=== PATIENT | male | born 1975 ===

== ENCOUNTER 2018-09-10 01:12 | Emergency (ER) | payer OTHER ==
[2018-09-10 01:33] VITALS: BMI 29.9
[2018-09-10 01:36] VITALS: RESP 18
[2018-09-10] MEDS ORDERED: Sodium Chloride 0.9% 1,000 ML IV STA (01:57)
[2018-09-10 02:47] LABS: BASO % 0.2 % (0.0-2.0); EOS # 0.4 K/uL (0.0-0.7); EOS % 3.2 % (0.0-4.0); HEMOGLOBIN 14.3 g/dL (12.0-18.0); LYMPH # 0.7 K/uL (1.0-4.3); LYMPH % 5.6 % (20.0-40.0); MEAN CELL VOLUME 87.3 fl (80.0-94.0); MEAN CORPUSCULAR HEMOGLOBIN 29.1 pg (27.0-31.0); MEAN CORPUSCULAR HGB CONC 33.3 g/dL (33.0-37.0); MEAN PLATELET VOLUME 9.2 fl (7.2-11.7); MONO # 0.5 K/uL (0.0-0.8); MONO % 3.6 % (0.0-10.0); NEUT % 87.4 % (50.0-75.0); PLATELET COUNT 204 K/uL (130-400); RBC 4.93 Mil/uL (4.40-5.90); RED CELL DISTRIBUTION WIDTH 14.2 % (11.5-14.5); WHITE BLOOD COUNT 12.6 K/uL (4.8-10.8)
[2018-09-10 02:48] LABS: SQUAMOUS EPITHIAL < 1 /hpf (0-5); URINE BILIRUBIN NEGATIVE (NEGATIVE); URINE BLOOD NEGATIVE (NEGATIVE); URINE CLARITY CLEAR (Clear); URINE COLOR YELLOW (YELLOW); URINE GLUCOSE (UA) NEG (NEGATIVE); URINE LEUKOCYTE ESTERASE NEG Leu/uL (Negative); URINE PROTEIN NEGATIVE (NEGATIVE); URINE UROBILINOGEN 0.2-1.0 mg/dL (0.2-1.0)
[2018-09-10 03:01] LABS: ALB/GLOB RATIO 1.2 (1.0-2.1); ALBUMIN 4.4 g/dL (3.5-5.0); ALT/SGPT 41 U/L (21-72); AST/SGOT 37 U/L (17-59); BLOOD UREA NITROGEN 21 mg/dl (9-20); CALCIUM 9.7 mg/dL (8.4-10.2); GFR NON-AFRICAN AMERICAN > 60; LIPASE 92 U/L (23-300)
--- NOTE | 2018-09-10 03:06 | ED PDOC ---
HPI: Abdomen Time Seen by Provider: 09/10/18 01:52 Chief Complaint (Nursing): Abdominal Pain Chief Complaint (Provider): Abdominal Pain History Per: Patient History/Exam Limitations: no limitations Onset/Duration Of Symptoms: Days (3pm today) Current Symptoms Are (Timing): Still Present Location Of Pain/Discomfort: LUQ Quality Of Discomfort: "Pain" Associated Symptoms: Nausea, Vomiting. denies: Fever, Diarrhea Additional Complaint(s): 43 year old male presents to the ED for an evaluation of abdominal pain onset at 3pm today with nausea and vomiting. Patient complains the pain is located on the left upper side. Otherwise, patient denies fever, diarrhea, shortness of breath or chest pain. PMD: Non [facility] provider Past Medical History Reviewed: Historical Data, Nursing Documentation, Vital Signs Vital Signs: Last Vital Signs Temp 98.5 F 09/10/18 01:33 Pulse 75 09/10/18 01:33 Resp 18 09/10/18 01:33 BP 141/91 H 09/10/18 01:33 Pulse Ox 99 09/10/18 01:33 - Medical History PMH: Gastritis Denies: Chronic Kidney Disease - Surgical History Surgical History: Tonsillectomy - Family History Family History: States: Unknown Family Hx - Social History Current smoker - smoking cessation education provided: No Alcohol: None Drugs: Denies - Home Medications Home Medications: Ambulatory Orders Medication Instructions Recorded Ibuprofen [Motrin Tab] 800 mg PO Q8 #20 tab 05/07/16 Ondansetron ODT [Zofran ODT] 4 mg PO Q6 PRN #10 odt 05/07/16 Ondansetron [Zofran] 4 mg PO Q6H PRN #10 tab 07/23/16 traMADol [Ultram] 50 mg PO TID PRN #12 tab 07/23/16 Dicyclomine [Bentyl] 20 mg PO Q12 PRN #10 tab 09/10/18 Ondansetron ODT [Zofran ODT] 4 mg PO Q6 PRN #8 odt 09/10/18 - Allergies Allergies/Adverse Reactions: Allergies Allergy/AdvReac Type Severity Reaction Status Date / Time No Known Allergies Allergy Verified 09/10/18 01:33 Review of Systems ROS Statement: Except As Marked, All Systems Reviewed And Found Negative Constitutional: Negative for: Fever Cardiovascular: Negative for: Chest Pain Respiratory: Negative for: Shortness of Breath Gastrointestinal: Positive for: Nausea, Vomiting, Abdominal Pain. Negative for: Diarrhea Physical Exam - Reviewed Nursing Documentation Reviewed: Yes Vital Signs Reviewed: Yes - Physical Exam Appears: Positive for: Uncomfortable Head Exam: Positive for: ATRAUMATIC, NORMAL INSPECTION, NORMOCEPHALIC Skin: Positive for: Normal Color, Warm, Dry. Negative for: Rash Eye Exam: Positive for: EOMI, Normal appearance, PERRL ENT: Positive for: Normal ENT Inspection Neck: Positive for: Normal, Painless ROM, Supple. Negative for: Decreased ROM Cardiovascular/Chest: Positive for: Regular Rate, Rhythm. Negative for: Murmur Respiratory: Positive for: Normal Breath Sounds. Negative for: Decreased Breath Sounds, Respiratory Distress Gastrointestinal/Abdominal: Positive for: Tenderness (mild LUQ tenderness) Back: Positive for: Normal Inspection Extremity: Positive for: Normal ROM. Negative for: Tenderness, Pedal Edema, Deformity Neurological/Psych: Positive for: Awake, Alert, Normal Tone, Oriented (x3) - Laboratory Results Result Diagrams: 09/10/18 02:35 09/10/18 02:35 Lab Results: Total Bilirubin 0.6 mg/dl (0.2-1.3) 09/10/18 02:35 AST 37 U/L (17-59) 09/10/18 02:35 ALT 41 U/L (21-72) 09/10/18 02:35 Alkaline Phosphatase 116 U/L (38-126) 09/10/18 02:35 Total Protein 8.1 G/DL (6.3-8.2) 09/10/18 02:35 Albumin 4.4 g/dL (3.5-5.0) 09/10/18 02:35 Globulin 3.7 gm/dL (2.2-3.9) 09/10/18 02:35 Albumin/Globulin Ratio 1.2 (1.0-2.1) 09/10/18 02:35 Lipase 92 U/L (23-300) 09/10/18 02:35 Urine Color Yellow (YELLOW) 09/10/18 02:35 Urine Clarity Clear (Clear) 09/10/18 02:35 Urine pH 5.0 (5.0-8.0) 09/10/18 02:35 Ur Specific [place] 1.018 (1.003-1.030) 09/10/18 02:35 Urine Protein Negative mg/dL (NEGATIVE) 09/10/18 02:35 Urine Glucose (UA) Neg mg/dL (NEGATIVE) 09/10/18 02:35 Urine Ketones Negative mg/dL (NEGATIVE) 09/10/18 02:35 Urine Blood Negative (NEGATIVE) 09/10/18 02:35 Urine Nitrate Negative (NEGATIVE) 09/10/18 02:35 Urine Bilirubin Negative (NEGATIVE) 09/10/18 02:35 Urine Urobilinogen 0.2-1.0 mg/dL (0.2-1.0) 09/10/18 02:35 Ur Leukocyte Esterase Neg Mary/uL (Negative) 09/10/18 02:35 Urine RBC (Auto) 2 /hpf (0-3) 09/10/18 02:35 Urine Microscopic WBC < 1 /hpf (0-5) 09/10/18 02:35 Ur Squamous Epith Cells < 1 /hpf (0-5) 09/10/18 02:35 - ECG O2 Sat by Pulse Oximetry: 99 (RA) Pulse Ox Interpretation: Normal Medical Decision Making Medical Decision Making: Time: 0157 Impression: 43 year old male presents with abdominal pain and vomiting Plan: CMP Lipase ED urine dipstick CBC w/ differential Normal saline 1000 mls/hr Pepcid 20mg Zofran 4mg Heplock insertion UA Reevaluation Labs reviewed and revealed no clinically significant abnormalities with an exception of leukocytes 0408: Abdomen/Pelvis CT ordered 0553: CT SCAN OF THE ABDOMEN AND PELVIS WITH CONTRAST. CLINICAL HISTORY: Abdominal pain. Nausea and vomiting. COMPARISON: 07/23/2016. TECHNIQUE: Multiple axial and coronal CT images were obtained through the abdomen and pelvis after administration of intravenous contrast material. COMMENTS: There is interval appearance of patchy in both nodular and airspace infiltrates of the right lower lobe. Probably bronchiolitis. Cholelithiasis without acute cholecystitis. Fluid-filled small bowels. The liver is of uniform attenuation without mass or defect. There is no intra or extrahepatic biliary ductal dilatation. The spleen is normal. The pancreas is of normal contour and attenuation characteristics. There is no evidence of adrenal mass. Both kidneys demonstrate prompt and equal nephrograms. The kidneys are normal in size, shape and configuration. There is no evidence of renal or ureteral mass. No renal or ureteral calculi are identified. There is no hydroureter or hydronephrosis. No evidence for appendicitis. There is no bowel wall thickening. No evidence for small or large bowel obstruction. There is no evidence of abdominal ascites or lymphadenopathy. There is no evidence of intrinsic or extrinsic bladder mass. There is no pelvic ascites or lymphadenopathy. Images of the lung bases show no evidence of pleural or parenchymal mass. There are no pleural effusions. The bony structures are free of lytic or blastic lesions. IMPRESSION: There is interval appearance of patchy in both nodular and airspace infiltrates of the right lower lobe. Probably bronchiolitis. Cholelithiasis without acute cholecystitis. Fluid-filled small bowels. Ileus versus enteritis. 0600: Patient diagnosed with gastroenteritis Upon provider evaluation patient is medically stable, and requires no further treatment in the ED at this time. Patient will be discharged home. Counseling was provided and all questions were answered regarding diagnosis. There is agreement to discharge plan. Return if symptoms persist or worsen. Scribe Attestation: Documented by Demarcus Smith, acting as a scribe for Rizwan Schmidt MD Provider Scribe Attestation: All medical record entries made by the Scribe were at my direction and personally dictated by me. I have reviewed the chart and agree that the record accurately reflects my personal performance of the history, physical exam, medical decision making, and the department course for this patient. I have also personally directed, reviewed, and agree with the discharge instructions and disposition. Disposition - Clinical Impression Clinical Impression: Gastroenteritis - Patient ED Disposition Is Patient to be Admitted: No - Disposition Disposition: Routine/Home Disposition Time: 06:00 Condition: STABLE Prescriptions: Dicyclomine [Bentyl] 20 mg PO Q12 PRN #10 tab PRN Reason: abdominal pain/diarrhea Ondansetron ODT [Zofran ODT] 4 mg PO Q6 PRN #8 odt PRN Reason: Nausea/Vomiting Instructions: Gastroenteritis (ED) Forms: [facility] (Latvian) Print Language: BENGALI
[2018-09-10 03:35] LABS: BANDS 4 % (0-2); EOSINOPHIL 2 % (0-7); LYMPHOCYTE 7 % (20-50); MONOCYTE 3 % (0-10); NEUTROPHIL 84 % (42-75); TOTAL CELLS COUNTED 100
[2018-09-10 03:36] LABS: PLATELET ESTIMATE NORMAL (NORMAL)
[2018-09-10] MEDS ORDERED: Iohexol 300 100 ML IJ ONE (04:34)
[2018-09-10] MEDS ORDERED: Sodium Chloride 0.9% 50 ML IV ONE (04:34)
[2018-09-10 06:20] VITALS: BP 123/62; PULSE 70; TEMP 99.2
[2018-09-10 07:00] VITALS: O2SAT 99
--- NOTE | 2018-09-10 17:08 | CT ---
Date of service: 09/10/2018 PROCEDURE: CT Abdomen and Pelvis with contrast HISTORY: abd pain N/V COMPARISON: Abdomen pelvis CT without contrast 07/23/2016. TECHNIQUE: Following the intravenous administration of iodinated contrast material, a CT examination of the abdomen and pelvis was performed from the domes of the diaphragms to the symphysis pubis with reformatted datasets provided in axial, sagittal and coronal planes. Oral contrast was not administered as per referring physician request. Contrast dose: Omnipaque 300, 95 cc Radiation dose: Total exam DLP = 512.32 mGy-cm. This CT exam was performed using one or more of the following dose reduction techniques: Automated exposure control, adjustment of the mA and/or kV according to patient size, and/or use of iterative reconstruction technique. FINDINGS: LOWER THORAX: Trace bilateral dependent basilar atelectasis. LIVER: Mildly diminished attenuation throughout the liver suggests hepatic steatosis without mass or intrahepatic biliary duct dilatation. GALLBLADDER AND BILE DUCTS: Cholelithiasis is identified within a distended distended gallbladder which is otherwise unremarkable appearing. Clinically correlate nevertheless for potential cholecystitis. PANCREAS: Unremarkable. No gross lesion or ductal dilatation. SPLEEN: Unremarkable. ADRENALS: Unremarkable. No mass. KIDNEYS AND URETERS: Unremarkable. No hydronephrosis. No solid mass. VASCULATURE: Unremarkable. No aortic aneurysm. No aortic atherosclerotic calcification or mural plaque present. BOWEL: Stomach is distended with retained food and fluid. Fluid is seen partially filling numerous small bowel loops which are mildly distended. Fluid is also seen within much of the large bowel with the exception of the distal descending through rectosigmoid segments. No gross mural thickening is appreciated or pericolic or perintestinal reaction to suggest enteritis or colitis. Clinically correlate nevertheless. No bowel obstruction appreciable throughout. APPENDIX: Normal appendix. PERITONEUM: Unremarkable. No free fluid. No free air. LYMPH NODES: Unremarkable. No enlarged lymph nodes. BLADDER: Distended but smooth and thin walled urinary bladder is appreciated. REPRODUCTIVE: Unremarkable. BONES: No acute fracture. OTHER FINDINGS: None. IMPRESSION: 1. Cholelithiasis within a distended but otherwise unremarkable gallbladder. No biliary tree dilatation. Cholecystitis is unlikely however clinical correlation is recommended nevertheless. 2. Nonspecific mild small bowel distention with air and fluid a similar pattern affecting proximal and middle large-bowel segments but without mural thickening or local mesenteric reaction. No bowel obstruction evident. Enteritis not grossly apparent. Borderline sigmoid diverticulosis without diverticulitis. Preliminary report provided by Nayeli, 11/10/2018, 5:53 a.m..
== END 2018-09-10 06:22 | disposition home or self-care (01) ==
LOC: H.ER 01:12
DX: K52.9 Noninfective gastroenteritis and colitis, unspecified (principal); K80.20 Calculus of gallbladder without cholecystitis without obstruction
CPT/HCPCS: 74177; 80053; 81003; 83690; 85025; 96360; 99284; J2405; J7030; Q9967